=== PATIENT | female | born 1985 | race Caucasian/White ===

== ENCOUNTER 2017-08-07 09:55 | Emergency (ER) | payer BC, OTHER ==
[~2017-08-07] VITALS: Ht 162.6 cm; Wt 54.4 kg
--- NOTE | 2017-08-07 10:14 | NUR ---
MD is at bedside evaluating the patient, pending MD orders.
--- NOTE | 2017-08-07 10:37 | NUR ---
Patient discharged to home in stable conditon. Written and verbal after care instructions given to patient. Patient verbalizes understanding of instructions.
== END 2017-08-07 10:38 | disposition home or self-care (01) ==
LOC: ER 09:55
DX: M72.2 Plantar fascial fibromatosis (principal)
CPT/HCPCS: A4663